=== PATIENT | male | born 1965 | race African-American/Black ===

== ENCOUNTER 2023-04-07 08:58 | Day surgery (SDC) | payer OTHER ==
[2023-04-06 14:18] VITALS: BMI 29.7
[2023-04-07] MEDS ORDERED: LIDOCAINE HCL/PF 2% SDV 5ML VIAL ONE (12:53)
[2023-04-07] MEDS ORDERED: MIDAZOLAM HCL 2 MG/2 ML SINGLE DOSE VIAL ONE (12:54)
[2023-04-07] MEDS ORDERED: PROPOFOL 20 ML ONE ×2 (12:54→13:38)
[2023-04-07] MEDS ORDERED: BUPIVACAINE HCL/PF 2.5 MG/ML - 30 ML VIAL IJ ONE (13:09)
[2023-04-07] MEDS ORDERED: DEXAMETHASONE SOD PHOSPHATE 4 MG/1 ML VIAL ONE ×3 (13:40→13:41)
[2023-04-07] MEDS ORDERED: ceFAZolin SODIUM 1 GM VIAL ONE (13:41)
[2023-04-07] MEDS ORDERED: TRANEXAMIC ACID 1000 MG/10 ML VIAL ONE (13:43)
[2023-04-07] MEDS ORDERED: HYDROmorphone HCL/PF 1 MG/ML VIAL ONE (15:07)
[2023-04-07] MEDS ORDERED: SUCCINYLCHOLINE CHLORIDE 200 MG/10 ML SYRINGE ONE (15:34)
[2023-04-07] MEDS ORDERED: oxyCODONE HCL 5 MG TABLET PO PRN ×2 (15:52)
[2023-04-07] MEDS ORDERED: LACTATED RINGERS SOLUTION 1,000 ML IV SCH (16:00)
[2023-04-07 16:40] VITALS: PULSE 65
[2023-04-07 17:02] VITALS: TEMP 97.2
[2023-04-07 17:50] VITALS: BP 140/85; RESP 18
== END 2023-04-07 17:51 | disposition home or self-care (01) ==
LOC: FASU 08:58
PROVIDERS: ATTEND Orthopaedic Surgery Sports Medicine
PROC: 0LQL0ZZ Repair Right Upper Leg Tendon, Open Approach (ICD-10-PCS; principal; 2023-04-07 13:53)
DX: S76.111A Strain of right quadriceps muscle, fascia and tendon, initial encounter (principal); X58.XXXA Exposure to other specified factors, initial encounter; Y93.9 Activity, unspecified; Y92.9 Unspecified place or not applicable
CPT/HCPCS: 94760; C1713